=== PATIENT | male | born 1930 | race Caucasian/White ===

== ENCOUNTER 2018-07-05 07:36 | Outpatient (CLI) | payer OTHER | END 2018-07-05 07:42 | disposition home or self-care (01) | LOC: LAB 07:36 | DX: C61 Malignant neoplasm of prostate (principal) ==

== ENCOUNTER 2018-07-24 07:40 | Outpatient (CLI) | payer OTHER | END 2018-07-24 08:00 | disposition home or self-care (01) | LOC: NUCLEAR 07:40 | DX: C64.2 Malignant neoplasm of left kidney, except renal pelvis (principal); C61 Malignant neoplasm of prostate | CPT/HCPCS: 78306; 78320; A9503 ==